=== PATIENT | male | born 1960 | race Caucasian/White ===

== ENCOUNTER 2018-08-26 11:03 | Day surgery (SDC) | payer BC ==
[2018-08-26] MEDS ORDERED: LIDOCAINE 2% MDV (20MG/ML) 20ML VIAL IV ONE (11:04)
[2018-08-26] MEDS ORDERED: PROPOFOL 10 MG/ML VIAL IV ONE (11:04)
--- NOTE | 2018-08-27 08:31 | Operative Note ---
DATE OF SURGERY: 08/26/2018 OPERATION: COLONOSCOPY to the cecum. INDICATION: History of adenomatous polyps. Last examination 3 years ago by my associate, Dr. Ramirez, who removed polyps. He returns at this time for surveillance. He denies any new issues. ANESTHESIA: Intravenous sedation was administered by the department of anesthesiology and included Diprivan titrated to effect. PROCEDURE: Following informed consent from this alert individual including a discussion of the risks and benefits of the procedure and an opportunity for the patient to ask questions, the patient was in the left lateral decubitus position. A digital rectal examination was performed. No abnormalities were noted. Following this, the Olympus [id number] video colonoscope was inserted into the rectum without resistance. The rectal mucosa had a normal appearance with normal folds and distensibility. The sigmoid colon had a few scattered diverticula noted. The colonoscope was further advanced up through the remainder of the bowel to the cecum without difficulty. Throughout the remainder of the bowel, the mucosa appeared normal, the folds were normal, and the bowel was fairly well distensible. The cecum was defined by noting the appendiceal orifice and ileocecal valve. The colon preparation was good. From the base of the cecum, the colonoscope was then withdrawn. No polyps were noted throughout the bowel upon withdrawal. Again, sigmoid diverticulosis was apparent. Retroflexion in the rectum revealed small internal hemorrhoids. The endoscope was straightened and removed. The patient tolerated the procedure well and was returned to the recovery area in stable condition. IMPRESSION: 1. Diverticulosis. 2. Small internal hemorrhoids. 3. No polyps noted. RECOMMENDATIONS: The patient was advised to have recheck colonoscopy for polyp surveillance in 5 years' time or sooner if problems arise. Followup will be with Dr. Haddad. As always, thank you for allowing me to participate in the care of your patient. CC: KULDEEP HADDAD MD, FACP [facility]
== END 2018-08-26 13:10 | disposition home or self-care (01) ==
LOC: HOP 11:03
PROVIDERS: ATTEND Internal Medicine Gastroenterology
DX: Z12.11 Encounter for screening for malignant neoplasm of colon (principal); Z86.010 Personal history of colon polyps; K57.30 Diverticulosis of large intestine without perforation or abscess without bleeding; J45.909 Unspecified asthma, uncomplicated; E78.00 Pure hypercholesterolemia, unspecified
CPT/HCPCS: 00812; G0105